=== PATIENT | male | born 1980 | race Caucasian/White ===

== ENCOUNTER 2020-06-30 15:08 | Emergency (ER) | payer OTHER ==
[~2020-06-30] VITALS: Ht 193 cm; Wt 113.4 kg
[2020-06-30] MEDS ORDERED: CLINDAMYCIN HCL 150 MG CAP PO ONE (15:30)
[2020-06-30] MEDS ORDERED: cefTRIAXone SOD 1,000 MG VL IM ONE (15:30)
[2020-06-30 15:40] VITALS: BP 153/97
== END 2020-06-30 15:51 ==
LOC: ER 15:08 → EDBD 15:08 → ER 15:51
DX: S80.811A Abrasion, right lower leg, initial encounter (principal); L03.115 Cellulitis of right lower limb; R03.0 Elevated blood-pressure reading, without diagnosis of hypertension; X58.XXXA Exposure to other specified factors, initial encounter; Y93.9 Activity, unspecified; Y92.89 Other specified places as the place of occurrence of the external cause; Y99.8 Other external cause status
CPT/HCPCS: 96372; 99283; J0696